=== PATIENT | male | born 1960 | race Asian ===

== ENCOUNTER 2025-06-10 13:28 | Inpatient (IN) | payer OTHER, MEDICARE ==
[~2025-06-10] VITALS: Ht 167.6 cm; Wt 60.3 kg
[~2025-06-10 13:28] MED LIST: AMLO-258 PO; ASPI81TA87 PO; BENA-16 PO; CLON0.1T PO; HYDR-4061 PO
[2025-06-10] MEDS ORDERED: LISI1TAB53 PO (13:35)
[2025-06-10] MEDS ORDERED: ROSU40TA88 PO (13:35)
[2025-06-10] MEDS ORDERED: AMLO10TA55 PO (13:35)
[2025-06-10] MEDS ORDERED: NOREPINEPHRINE 8 MG/0.9 % NACL 250 ML IV ONE (13:54)
[2025-06-10 14:00] LABS: PLATELET COUNT (AUTO) 223 K/uL (150-450); RED BLOOD CELL COUNT(AUTO) 4.72 MIL/uL (4.50-5.90); RED CELL DISTRIBUTION WIDTH 14.4 % (11.5-14.5); WHITE BLOOD COUNT (AUTO) 5.6 K/uL (4.5-11.0)
[2025-06-10 14:00] LABS: GLUCOMETER DEV NAME(LOC) ERT.7; GLUCOSE,POINT OF CARE 237 MG/DL (70-110)
[2025-06-10 14:05] LABS: CALCIUM, TOTAL 8.2 mg/dL (8.8-10.5); CREATININE 1.80 mg/dL (0.60-1.30); GLOMERULAR FILTR. RATE CALC 38 mL/min (>60); GLUCOSE,RANDOM 223 mg/dL (70-110); SODIUM SERUM 133 mmol/L (136-145); UREA NITROGEN, BLOOD 24 mg/dL (7-18)
[2025-06-10] MEDS: SODIUM CHLORIDE 0.9% 1,000 ML IV ONE ×2 (14:11→14:12)
[2025-06-10] MEDS: PHENYLEPHRINE HCL IN 0.9% NACL 400 MCG/10 ML SYRINGE IVP ONE (14:12)
[2025-06-10 14:13] LABS: TROPONIN I-HIGH SENSITIVITY 12 ng/L (<76)
[2025-06-10] MEDS: NOREPINEPHRINE 8 MG/0.9 % NACL 250 ML IV PRN (14:13)
[2025-06-10 14:22] LABS: ALCOHOL, BLOOD (SERUM) < 3 mg/dL (0-10); LACTIC ACID 2.8 mmol/L (0.4-2.0)
[2025-06-10] MEDS ORDERED: PHENYLEPHRINE HCL 400 MG in DEXTROSE 5%-WATER 210 ML IV PRN (14:30)
[2025-06-10 14:49] LABS: COVID AG,FIA SOURCE NASAL SWAB
[2025-06-10 14:59] LABS: ABG BASE EXCESS -2.3 mmol/L (-2.0-3.0); ABG CARBOXYHEMOGLOBIN 0.4 % (0.5-1.5); ABG HCO3 23.3 mmol/L (21.0-28.0); ABG METHEMOGLOBIN 0.2 % (0.0-1.5); ABG OXYGEN CONTENT 17.1 mL/dL (15.0-23.0); ABG OXYGEN SATURATION 95.9 % (94.0-98.0); ABG OXYHEMOGLOBIN 95.3 % (94.0-98.0); ABG PCO2 29 mmHg (32.0-48.0); ABG PH 7.482 (7.350-7.450); ABG TOTAL HEMOGLOBIN 12.7 G/dL (13.5-17.5); FRACTIONATED INSPIRED OXYGEN 40.0 % (21-100.0); PO2, ARTERIAL BG 73.9 mmHg (83.0-108.0); SOURCE, BLOOD GAS ARTERIAL; TEMPERATURE, FAHRENHEIT, BG 96.8 FAHREN (96.0-98.6)
[2025-06-10 15:00] LABS: ALLEN TEST, BLOOD GAS POS; O2 DEVICE,BLOOD GAS NC (ROOM AIR); SITE, BLOOD GAS RT BRACHIAL
[2025-06-10 15:06] LABS: ASPARTATE AMINOTRANSFERASE 38.0 U/L (15-37); CREATINE KINASE, TOTAL ONLY 362.0 U/L (39-308); TOTAL PROTEIN, SERUM 6.9 g/dL (6.4-8.2)
[2025-06-10] MEDS: PHENYLEPHRINE 200 MG/D5%-WATER 250 ML IV PRN (15:17)
[2025-06-10] MEDS: PIPERACILLIN/TAZO 3.375 GM/D5W 50 ML IV ONE (15:18)
[2025-06-10 15:30] LABS: INFLUENZA TYPE A NEGATIVE FOR TYPE A (NEGATIVE); INFLUENZA TYPE B NEGATIVE FOR TYPE B (NEGATIVE); SARS-COV2 (COVID) ANTIGEN,FIA Negative (Negative)
[2025-06-10 16:24] LABS: APPEARANCE,URINE CLEAR (CLEAR); GLUCOSE, URINE (UA) NEGATIVE (NEGATIVE); LEUKOCYTE ESTERASE ,URINE NEGATIVE (NEGATIVE); NITRATE,URINE NEGATIVE (NEGATIVE); OCCULT BLOOD,URINE TRACE (NEGATIVE); PH,URINE DRUG SCREEN 5.5 (5.0-8.0); SPECIFIC GRAVITIY, URINE 1.011 (1.003-1.030)
[2025-06-10] MEDS: MAGNESIUM SULFATE 1 GM in DEXTROSE 5%-WATER 50 ML IV ONE (16:31)
[2025-06-10 16:36] LABS: ALCOHOL, URINE DRUG SCREEN NEGATIVE (NEGATIVE); AMPHET/METH SCREEN,URINE NEGATIVE (NEGATIVE); BARBITURATE SCREEN, URINE NEGATIVE (NEGATIVE); CANNABINOID SCREEN,URINE NEGATIVE (NEGATIVE); COCAINE SCREEN,URINE NEGATIVE (NEGATIVE); METHADONE SCREEN, URINE NEGATIVE (NEGATIVE)
[2025-06-10 16:36] LABS: TROPONIN I-HIGH SENSITIVITY 88 ng/L (<76)
[2025-06-10 16:42] LABS: SQUAMOUS EPITHELIAL CELL,UR Rare /LPF (None Seen)
[2025-06-10] MEDS: VANCOMYCIN 1.25 GM/WATER(PEG) 250 ML IV ONE (17:31)
[2025-06-10] MEDS: AZITHROMYCIN 500 MG/NS 250 ML IV ONE (18:11)
[2025-06-10 19:59] LABS: TROPONIN I-HIGH SENSITIVITY 268 ng/L (<76)
[2025-06-10] MEDS: PIPERACILLIN SODIUM/TAZOBACTAM 2.25 GM in DEXTROSE 5%-WATER 50 ML IV SCH (21:13)
[2025-06-10 21:25] LABS: TROPONIN I-HIGH SENSITIVITY 217 ng/L (<76)
[2025-06-10] MEDS ORDERED: ACETAMINOPHEN 325 MG TABLET PO PRN (23:30)
[2025-06-10] MEDS ORDERED: NITROGLYCERIN 2% (1 GM=INCH) OINTMENT PACKET TP PRN (23:30)
[2025-06-10] MEDS: HEPARIN SODIUM,PORCINE 5,000 UNITS/ML VIAL SQ SCH (23:39)
[2025-06-10] MEDS ORDERED: ALBUTEROL SULFATE 2.5 MG/0.5 ML NEB SOLUTION NEB PRN (23:45)
[2025-06-10] MEDS: OXYGEN THERAPY IH SCH (23:54)
[2025-06-11 05:06] LABS: PLATELET COUNT (AUTO) 218 K/uL (150-450); RED BLOOD CELL COUNT(AUTO) 4.92 MIL/uL (4.50-5.90); RED CELL DISTRIBUTION WIDTH 14.0 % (11.5-14.5); WHITE BLOOD COUNT (AUTO) 5.4 K/uL (4.5-11.0)
[2025-06-11 05:20] LABS: ASPARTATE AMINOTRANSFERASE 39 U/L (15-37); CALCIUM, TOTAL 8.6 mg/dL (8.8-10.5); CHOL/HDL RATIO 1.8 (4.2-7.3); CREATININE 1.04 mg/dL (0.60-1.30); GLOMERULAR FILTR. RATE CALC > 60 mL/min (>60); GLUCOSE,RANDOM 105 mg/dL (70-110); LDL CHOL (CALC.) 30.0 mg/dL (0-130); SODIUM SERUM 136 mmol/L (136-145); TOTAL PROTEIN, SERUM 7.2 g/dL (6.4-8.2); UREA NITROGEN, BLOOD 17 mg/dL (7-18)
[2025-06-11 05:35] VITALS: BP 126/73; PULSE 44; RESP 16; TEMP 97.8; O2SAT 98
[2025-06-11 05:40] VITALS: PULSE 44
[2025-06-11 06:57] LABS: TROPONIN I-HIGH SENSITIVITY 57 ng/L (<76)
[2025-06-11 08:00] VITALS: BP 119/76; PULSE 50; RESP 16; TEMP 97.9; O2SAT 98
[2025-06-11] MEDS ORDERED: VANCOMYCIN 500 MG/WATER(PEG) 100 ML IV SCH (08:00)
[2025-06-11] MEDS ORDERED: SODIUM CHLORIDE 0.9% 250 ML IV ONE (09:11)
[2025-06-11] MEDS: VANCOMYCIN 750 MG/WATER(PEG) 150 ML IV SCH (09:35)
[2025-06-11] MEDS: ASPIRIN 81 MG CHEWABLE TABLET PO SCH (09:36)
[2025-06-11] MEDS: PANTOPRAZOLE SODIUM 40 MG DR TABLET PO SCH (09:36)
[2025-06-11] MEDS: PIPERACILLIN/TAZO 3.375 GM/D5W 50 ML IV SCH (11:35)
[2025-06-11 12:00] VITALS: BP 125/73; PULSE 54; RESP 14; TEMP 97.7; O2SAT 97
[2025-06-11 12:43] LABS: TROPONIN I-HIGH SENSITIVITY 39 ng/L (<76)
[2025-06-11 16:00] VITALS: BP 96/59; PULSE 58; RESP 15; TEMP 97.7; O2SAT 98
[2025-06-11 16:36] LABS: TROPONIN I-HIGH SENSITIVITY 35 ng/L (<76)
[2025-06-11] MEDS: AZITHROMYCIN 500 MG/NS 250 ML IV SCH (17:09)
[2025-06-11 20:00] VITALS: BP 113/66; PULSE 57; RESP 17; TEMP 98.5; O2SAT 96
[2025-06-11 21:03] LABS: TROPONIN I-HIGH SENSITIVITY 31 ng/L (<76)
[2025-06-11] MEDS: ETHYL ALCOHOL 62% ANTISEPTIC NASAL SANITIZER 0.6 ML AMPUL NASAL SCH (21:21)
[2025-06-12] VITALS (7 sets, daily range): BP systolic 112–131; BP diastolic 68–81; PULSE 51–70; RESP 12–18; TEMP 97–98.4; O2SAT 96–98
[2025-06-12] MEDS ORDERED: SODIUM CHLORIDE 0.9% 250 ML IV ONE (04:48)
[2025-06-12 05:14] LABS: PLATELET COUNT (AUTO) 208 K/uL (150-450); RED BLOOD CELL COUNT(AUTO) 5.05 MIL/uL (4.50-5.90); RED CELL DISTRIBUTION WIDTH 14.4 % (11.5-14.5); WHITE BLOOD COUNT (AUTO) 4.4 K/uL (4.5-11.0)
[2025-06-12 05:23] LABS: CALCIUM, TOTAL 8.8 mg/dL (8.8-10.5); CREATININE 1.11 mg/dL (0.60-1.30); GLOMERULAR FILTR. RATE CALC > 60 mL/min (>60); GLUCOSE,RANDOM 93 mg/dL (70-110); SODIUM SERUM 137 mmol/L (136-145); UREA NITROGEN, BLOOD 17 mg/dL (7-18)
[2025-06-13] VITALS: BP 127/81; PULSE 50; PULSE 61; RESP 18; TEMP 97.6; O2SAT 98
[2025-06-13] MEDS ORDERED: SODIUM CHLORIDE 0.9% 500 ML IV ONE (02:47)
[2025-06-13 03:46] VITALS: BP 128/81; PULSE 57; RESP 20; TEMP 98.2; O2SAT 94
[2025-06-13 04:00] VITALS: PULSE 60
[2025-06-13 06:17] LABS: PLATELET COUNT (AUTO) 220 K/uL (150-450); RED BLOOD CELL COUNT(AUTO) 5.33 MIL/uL (4.50-5.90); RED CELL DISTRIBUTION WIDTH 14.8 % (11.5-14.5); WHITE BLOOD COUNT (AUTO) 5.3 K/uL (4.5-11.0)
[2025-06-13 06:39] LABS: CALCIUM, TOTAL 9.0 mg/dL (8.8-10.5); CREATININE 1.08 mg/dL (0.60-1.30); GLOMERULAR FILTR. RATE CALC > 60 mL/min (>60); GLUCOSE,RANDOM 89 mg/dL (70-110); SODIUM SERUM 138 mmol/L (136-145); UREA NITROGEN, BLOOD 16 mg/dL (7-18)
[2025-06-13 07:46] VITALS: BP 128/79; PULSE 55; RESP 18; TEMP 98; O2SAT 95
[2025-06-13 12:17] VITALS: BP 149/77; PULSE 58; RESP 17; TEMP 97.9; O2SAT 98
[2025-06-13] MEDS ORDERED: ASPI-1450 PO (12:29)
[2025-06-13] MEDS ORDERED: AMOX-457 PO (12:29)
[2025-06-13] MEDS: FLUTICASONE PROPIONATE 50 MCG/SPRAY 16 GM NASAL SPRAY NASAL SCH (13:37)
[2025-06-13 15:32] VITALS: BP 142/79; PULSE 62; RESP 18; TEMP 98.2; O2SAT 96
[2025-06-14 13:08] LABS: LEGIONELLA PNEUMO AG URINE Negative (Negative); S PNEUMO SOURCE Urine; STREP PNEUMONIAE AG URINE Negative (Negative)
== END 2025-06-13 17:55 | disposition home or self-care (01) | DRG 871 ==
LOC: EMS 13:32 → EDH 16:05 → ICU 06-11 05:41 → 5N 06-12 18:50
PROVIDERS: ADMIT Family Medicine; ATTEND Family Medicine
DX: A41.9 Sepsis, unspecified organism (principal); I21.4 Non-ST elevation (NSTEMI) myocardial infarction; J18.9 Pneumonia, unspecified organism; J96.01 Acute respiratory failure with hypoxia; J69.0 Pneumonitis due to inhalation of food and vomit; E87.1 Hypo-osmolality and hyponatremia; N17.9 Acute kidney failure, unspecified; I24.89 Other forms of acute ischemic heart disease; I24.9 Acute ischemic heart disease, unspecified; E27.40 Unspecified adrenocortical insufficiency; R65.20 Severe sepsis without septic shock; E83.51 Hypocalcemia; E83.42 Hypomagnesemia; G90.89 Other disorders of autonomic nervous system; I10 Essential (primary) hypertension; E86.0 Dehydration; H53.8 Other visual disturbances; E78.5 Hyperlipidemia, unspecified; E86.9 Volume depletion, unspecified; R55 Syncope and collapse; Z20.822 Contact with and (suspected) exposure to COVID-19; Z87.891 Personal history of nicotine dependence; Z79.899 Other long term (current) drug therapy
CPT/HCPCS: 70450; 71045; 71250; 72192; 74150; 76700; 80048; 80053; 80061; 80076; 80202; 80307; 81001; 82533; 82550; 82805; 82962; 83605; 83735; 83880; 84145; 84300; 84443; 84484; 85025; 85610; 85730; 87040; 87081; 87449; 87804; 87899; 93005; 93306; 96365; 96366; 96368; 96375; 99291; G0480; J0456; J1644; J2370; J2543; J3475; J7040; J7050; J7060; 36415-L1; 36415-TC